=== PATIENT | male | born 1935 | race Caucasian/White ===

== ENCOUNTER 2017-08-23 05:57 | Day surgery (SDC) | payer MEDICARE ==
[2017-08-21 11:39] VITALS: BP 126/65
[2017-08-21 11:43] LABS: BASOPHILS % (AUTO) 0.9 % (0.0-5.0); EOSINOPHILS % (AUTO) 2.8 % (0.0-8.0); LYMPHOCYTES % (AUTO) 26.5 % (21.0-51.0); MEAN CORPUSCULAR HEMOGLOBIN 29.9 pg (27.0-33.0); MEAN CORPUSCULAR HGB CONC 34.3 g/dL (32.0-36.0); MEAN CORPUSCULAR VOLUME 87.1 fL (79-99); MONOCYTES % (AUTO) 9.2 % (3.0-13.0); NEUTROPHILS % (AUTO) 60.6 % (40.0-77.0); PLATELET COUNT (AUTO) 204 K/uL (130-400); RED BLOOD CELL COUNT(AUTO) 3.21 MIL/uL (4.50-6.20); RED CELL DISTRIBUTION WIDTH 17.9 % (11.0-15.5); WHITE BLOOD COUNT (AUTO) 5.7 K/uL (4.8-10.8)
[2017-08-21 11:45] LABS: CREATININE 1.2 mg/dL (0.5-1.5); POTASSIUM 4.8 mmol/L (3.5-5.1)
[2017-08-21 12:19] LABS: INR 1.15 (0.85-1.15); PARTIAL THROMBOPLASTIN TIME 28.5 SEC (26.3-35.5)
[~2017-08-23] VITALS: Ht 179.1 cm; Wt 95.3 kg
[2017-08-23] VITALS (11 sets, daily range): BP systolic 128–151; BP diastolic 63–97
[~2017-08-23 05:57] MED LIST: APIX2.5T PO; ASPI-555 PO; CARV12.511 PO; FURO20TA6 PO; METF10004 PO; MULT-40 PO; PRAV20TA PO
[2017-08-23] MEDS ORDERED: SODIUM CHLORIDE 0.9% 1000ML 1,000 ML IV ONE (08:21)
[2017-08-23] MEDS ORDERED: CEFAZOLIN 1GM / D5W 50ML 150 ML ONE (12:59)
[2017-08-23] MEDS ORDERED: BUPIVACAINE/PF 0.25% 30ML VIAL IJ ONE (12:59)
[2017-08-23] MEDS ORDERED: LIDOCAINE HCL 1% MDV 50ML VIAL ONE (12:59)
[2017-08-23] MEDS ORDERED: MIDAZOLAM HCL 1 MG/ML 2ML VIAL ONE ×3 (13:08→13:58)
[2017-08-23] MEDS ORDERED: MEPERIDINE-PF 25 MG/ML SYG ONE ×3 (13:08→13:58)
[2017-08-23] MEDS ORDERED: THROMBIN-JMI 5000 UNIT/VIAL TP ONE (14:02)
[2017-08-23] MEDS ORDERED: DOXY100C2 PO (14:56)
[2017-08-23] MEDS ORDERED: ONDANSETRON HCL 4 MG/2 ML VIAL IV PRN (15:00)
[2017-08-23] MEDS ORDERED: ACETAMINOPHEN 325 MG TAB PO PRN ×2 (15:00)
[2017-08-23] MEDS ORDERED: ACETAMINOPHEN-CODEINE 300/30MG TAB PO PRN ×2 (15:00)
== END 2017-08-23 19:40 | disposition home or self-care (01) ==
LOC: DAH 05:57
PROVIDERS: ATTEND Internal Medicine Cardiovascular Disease
DX: I25.5 Ischemic cardiomyopathy (principal); I11.0 Hypertensive heart disease with heart failure; I50.9 Heart failure, unspecified; I25.10 Atherosclerotic heart disease of native coronary artery without angina pectoris; Z95.1 Presence of aortocoronary bypass graft; I21.3 ST elevation (STEMI) myocardial infarction of unspecified site; I48.0 Paroxysmal atrial fibrillation; E78.5 Hyperlipidemia, unspecified
CPT/HCPCS: 33264; 36415; 80048; 82948 ×2; 85025; 85610; 85730; 93005; C1882; J0690; J2175 ×3; J2250 ×3; J3490 ×3; J7030; 99152; 99153

== ENCOUNTER 2017-11-24 06:49 | Day surgery (SDC) | payer MEDICARE ==
[~2017-11-24] VITALS: Ht 180.3 cm; Wt 88.5 kg
[~2017-11-24 06:49] MED LIST changes: +DOXY100C2 PO; +SODIUM CHLORIDE 0.9% 1000ML 1,000 ML IV ONE
[2017-11-24 07:31] VITALS: BP 109/68
[2017-11-24] MEDS ORDERED: PROPOFOL 10 MG/ML 20ML VIAL IV ONE (09:08)
== END 2017-11-24 10:06 | disposition home or self-care (01) ==
LOC: DAH 06:49
PROVIDERS: ATTEND Internal Medicine
DX: K31.4 Gastric diverticulum (principal); D50.9 Iron deficiency anemia, unspecified; K29.50 Unspecified chronic gastritis without bleeding; B96.81 Helicobacter pylori [H. pylori] as the cause of diseases classified elsewhere; I10 Essential (primary) hypertension; E78.5 Hyperlipidemia, unspecified; I25.10 Atherosclerotic heart disease of native coronary artery without angina pectoris; E11.9 Type 2 diabetes mellitus without complications; Z95.0 Presence of cardiac pacemaker; Z79.84 Long term (current) use of oral hypoglycemic drugs; Z98.84 Bariatric surgery status; Z79.899 Other long term (current) drug therapy
CPT/HCPCS: 44361; 82948 ×2; 93005; A4606; J2704; J7030

== ENCOUNTER 2018-11-16 07:42 | Day surgery (SDC) | payer MEDICARE ==
[2018-11-16] VITALS (8 sets, daily range): BP systolic 112–142; BP diastolic 6–79
[~2018-11-16] VITALS: Ht 179.1 cm; Wt 87.1 kg
[~2018-11-16 07:42] MED LIST changes: +FERS325 PO; +METF-446 PO; -METF10004 PO; +[UNRECOGNIZED DRUG - OTHER]
--- NOTE | 2018-11-16 12:40 | NUR ---
DC PT DC HOME VIA WC, ACCOMPANIED BY FAMILY FRIEND FILIBERTO SANTOYO INSTRUCTIONS GIVEN TO NATANAEL AND PATIENT, INSTRUCTED TO HOLD ELIQUIS FOR 72 HRS DUE TO BIOPSIES DONE. TO F/U WITH DR. HINDS AND CONTINUE REST OF HOME MEDS. PT AWAKE AND ALERT, NO DISTRESS NOTED. DENIED ANY PAIN OR DISCOMFORTS
== END 2018-11-16 12:40 | disposition home or self-care (01) ==
LOC: DAH 07:42
PROVIDERS: ATTEND Internal Medicine
DX: K57.30 Diverticulosis of large intestine without perforation or abscess without bleeding (principal); R19.4 Change in bowel habit; I48.91 Unspecified atrial fibrillation; I10 Essential (primary) hypertension; E11.9 Type 2 diabetes mellitus without complications; I25.10 Atherosclerotic heart disease of native coronary artery without angina pectoris; A04.5 Campylobacter enteritis; K29.70 Gastritis, unspecified, without bleeding; D50.9 Iron deficiency anemia, unspecified; E78.5 Hyperlipidemia, unspecified; Z86.73 Personal history of transient ischemic attack (TIA), and cerebral infarction without residual deficits; Z79.01 Long term (current) use of anticoagulants; Z79.899 Other long term (current) drug therapy; Z95.0 Presence of cardiac pacemaker; Z95.1 Presence of aortocoronary bypass graft
CPT/HCPCS: 45380; 82948 ×2; 88305; 93005; A4606; J7030